=== PATIENT | female | born 1995 | race African-American/Black ===

== ENCOUNTER 2016-11-30 16:29 | Emergency (ER) | payer OTHER ==
[~2016-11-30] VITALS: Ht 162.6 cm; Wt 63.0 kg
[~2016-11-30 16:29] MED LIST: ACETAMINOP160 MG/12 PER TUBE; CLARITIN10 MG PO; COLACE100 MG PO; FLAGYL500 MG PO; HUMALOG100 UNIT/1 SUBQ; KEFLEX500 MG PO; LANTUS100 UNIT/M SUBQ; METHIMAZOLE10 MG PO; NORCO 5-325 TA1 EACH PO; NOVOLIN R100 UNIT/1 IJ; ONDANSETRON HCL4 M2 PO; PENICILLIN VK500 M1 PO; PREDNISONE 20 M20 M1 PO; PRENATAL COMPL1 EACH PO; PROCTOSOL-HC28.35 GM RC; PROPRANOLOL 1010 MG PO; TAPAZOLE10 MG PO; TESSALON PERLE100 MG PO; TRINATE TABLET1 TAB PO; TYLENOL325 MG; ZANTAC 150MG T150 M1 PO
[2016-11-30 16:53] LABS: ABSOLUTE NEUTROPHILS 5.4 thou/uL (1.4-8.2); BASOPHILS 0.9 % (0.0-2.0); EOSINOPHILS 0.8 % (0.0-3.0); HEMATOCRIT 42.2 % (37.0-47.0); LYMPHOCYTES 29.8 % (24.0-44.0); MCHC 35.6 g/dL (28.0-37.0); MONOCYTES 8.5 % (1.0-8.0); PLATELET COUNT 376 thou/uL (150-400); RBC 4.85 mil/uL (4.20-5.00); RDW 12.4 % (10.5-14.5)
[2016-11-30 16:56] LABS: MANUAL DIFF NO
[2016-11-30 17:03] LABS: CALCIUM 10.2 mg/dL (8.5-10.1); CREATININE 0.9 mg/dL (0.6-1.3); POTASSIUM 3.6 mmol/L (3.5-5.1)
[2016-11-30 17:07] LABS: TOTAL BILIRUBIN 0.5 mg/dL (<0.1-1.0); TOTAL PROTEIN 8.7 g/dL (6.4-8.2)
[2016-11-30 17:43] LABS: URINE BLOOD NEGATIVE (Negative); URINE COLOR YELLOW; URINE GLUCOSE-RANDOM* 1+ (Negative); URINE KETONES 2+ (Negative); URINE LEUKOCYTES-REFLEX NEGATIVE (Negative); URINE PROTEIN (DIPSTICK) 2+ (Negative); URINE SPECIFIC GRAVITY >= 1.030 (1.003-1.035); URINE UROBILINOGEN 0.2 E.U./dl (0.2-1.0)
[2016-11-30 17:44] LABS: ICTOTEST (BILI CONFIRMATORY) Negative (Negative); URINE BILIRUBIN NEGATIVE (Negative)
[2016-11-30 17:55] LABS: SQUAMOUS >10 Many /LPF (0-3)
[2016-11-30 17:56] LABS: CASTS None Seen /LPF (None Seen); CRYSTALS None Seen /LPF (None Seen); URINE RBC 0-2 Rare /HPF (0-2); YEAST-REFLEX Present (None Seen)
[2016-11-30 18:32] LABS: ABG SAMPLE TYPE VENOUS; BE(vivo) -3.6 mmol/L (-2 to +3); HCO3 18.9 mmol/L (22.0-26.0); LACTATE 1.48 mmol/L (0.5-2.0); O2(CT) 17.7 mL/dL (15.0-23.0); O2Hb VENOUS 93.9 (65.0-85.0); PCO2 VENOUS 27.2 mmHg (41.0-51.0); PO2 VENOUS 140.7 mmHg (35.0-45.0); tCO2 19.7 mmol/L (24.0-30.0)
[2016-11-30 18:37] LABS: FIO2 21 %
[2016-11-30] MEDS ORDERED: ZOFRAN ODT4 M1 PO (19:01)
[2016-11-30] MEDS ORDERED: LANTUS100 UNIT/M SUBQ (19:03)
[2016-11-30] MEDS ORDERED: HUMALOG100 UNIT/1 SUBQ (19:03)
[2016-11-30] MEDS ORDERED: DIFLUCAN200 MG PO (19:03)
== END 2016-11-30 19:19 | disposition home or self-care (01) ==
LOC: ER 16:29
PROVIDERS: Emergency Medicine; Physician Assistant
DX: B37.9 Candidiasis, unspecified (principal); E11.9 Type 2 diabetes mellitus without complications; E86.0 Dehydration; E05.90 Thyrotoxicosis, unspecified without thyrotoxic crisis or storm

== ENCOUNTER 2017-03-19 17:18 | Emergency (ER) | payer OTHER ==
[~2017-03-19] VITALS: Ht 162.6 cm; Wt 61.2 kg
[~2017-03-19 17:18] MED LIST changes: +DIFLUCAN200 MG PO; +ZOFRAN ODT4 M1 PO
[2017-03-19 17:59] LABS: URINE BILIRUBIN NEGATIVE (Negative); URINE BLOOD NEGATIVE (Negative); URINE COLOR YELLOW; URINE GLUCOSE-RANDOM* 3+ (Negative); URINE KETONES NEGATIVE (Negative); URINE NITRITE NEGATIVE (Negative); URINE PROTEIN (DIPSTICK) NEGATIVE (Negative); URINE SPECIFIC GRAVITY <= 1.005 (1.003-1.035); URINE UROBILINOGEN 0.2 E.U./dl (0.2-1.0)
[2017-03-19] MEDS ORDERED: LANTUS100 UNIT/M SUBQ (20:02)
[2017-03-19] MEDS ORDERED: HUMALOG100 UNIT/1 SUBQ (20:02)
== END 2017-03-19 20:30 | disposition home or self-care (01) ==
LOC: ER 17:18
PROVIDERS: Nurse Practitioner Family
DX: E11.65 Type 2 diabetes mellitus with hyperglycemia (principal); E05.90 Thyrotoxicosis, unspecified without thyrotoxic crisis or storm; Z79.4 Long term (current) use of insulin

== ENCOUNTER 2017-05-11 09:42 | Emergency (ER) | payer OTHER ==
[~2017-05-11] VITALS: Ht 162.6 cm; Wt 61.7 kg
[2017-05-11] MEDS ORDERED: MOBIC7.5 MG PO (11:03)
[2017-05-11] MEDS ORDERED: NORCO 5-325 TA1 EACH PO (11:13)
[2017-05-11] MEDS ORDERED: HUMALOG100 UNIT/1 SUBQ (11:21)
[2017-05-11] MEDS ORDERED: LANTUS100 UNIT/M SUBQ (11:21)
== END 2017-05-11 11:35 | disposition home or self-care (01) ==
LOC: ER 09:42
DX: S92.422A Displaced fracture of distal phalanx of left great toe, initial encounter for closed fracture (principal); E11.9 Type 2 diabetes mellitus without complications; E03.9 Hypothyroidism, unspecified; Z79.4 Long term (current) use of insulin; X58.XXXA Exposure to other specified factors, initial encounter; Y93.89 Activity, other specified; Y92.89 Other specified places as the place of occurrence of the external cause; Y99.8 Other external cause status

== ENCOUNTER 2017-05-24 06:30 | Emergency (ER) | payer OTHER ==
[~2017-05-24] VITALS: Ht 162.6 cm; Wt 59.9 kg
[~2017-05-24 06:30] MED LIST changes: +MOBIC7.5 MG PO
[2017-05-24 08:29] LABS: URINE BILIRUBIN NEGATIVE (Negative); URINE BLOOD NEGATIVE (Negative); URINE COLOR YELLOW; URINE GLUCOSE-RANDOM* 1+ (Negative); URINE KETONES 3+ (Negative); URINE NITRITE NEGATIVE (Negative); URINE PROTEIN (DIPSTICK) TRACE (Negative); URINE SPECIFIC GRAVITY >= 1.030 (1.003-1.035); URINE UROBILINOGEN 0.2 E.U./dl (0.2-1.0)
[2017-05-24] MEDS ORDERED: PROPRANOLOL 1010 MG PO (09:31)
[2017-05-24] MEDS ORDERED: ZOFRAN ODT4 MG PO (09:31)
== END 2017-05-24 10:33 | disposition left against medical advice (07) ==
LOC: ER 06:30
PROVIDERS: Emergency Medicine
DX: E11.9 Type 2 diabetes mellitus without complications (principal); R11.2 Nausea with vomiting, unspecified; R00.0 Tachycardia, unspecified; E05.90 Thyrotoxicosis, unspecified without thyrotoxic crisis or storm; Z79.4 Long term (current) use of insulin

== ENCOUNTER 2017-06-02 08:49 | Emergency (ER) | payer OTHER ==
[~2017-06-02] VITALS: Ht 162.6 cm; Wt 61.7 kg
--- NOTE | ~2017-06-02 | EKG ---
[address] [address] ELECTROCARDIOGRAM REPORT Name: RACHEAL VAZQUEZ Room #: DEP [facility]#: [id number] Admission: 06/02/17 Attend Phys: Discharge: 06/02/17 Date of : [birth year] Report #: [id number] THIS REPORT FOR: //name// [facility] ED Test Date: 2017-06-02 Test Time: 10:02:42 Pat Name: RACHEAL VAZQUEZ Department: Room: Gender: F Digital Hardware Design Engineer: [id number] : 1995 Requested By: Devin Melendez Order Number: [id number] MD: Carlo Moura Measurements Intervals [place] Rate: 101 P: 32 [place]: 123 QRS: 37 QRSD: 65 T: 33 QT: 297 QTc: 385 Interpretive Statements Sinus tachycardia Compared to ECG 12/29/2015 10:29:19 No significant changes Electronically Signed On 06-02-2017 12:50:52 CDT by Carlo Moura [email or web address] <ELECTRONICALLY SIGNED> By: Carlo Moura MD 06/02/17 1250 1002 1002 Carlo Moura MD /ZAK
[~2017-06-02 08:49] MED LIST changes: +ZOFRAN ODT4 MG PO
[2017-06-02] MEDS ORDERED: IBUPROFEN 600600 M1 PO (10:30)
[2017-06-02] MEDS ORDERED: ULTRAM 50MG TAB50 MG PO (10:30)
== END 2017-06-02 10:42 | disposition home or self-care (01) ==
LOC: ER 08:49
DX: S92.421A Displaced fracture of distal phalanx of right great toe, initial encounter for closed fracture (principal); E11.9 Type 2 diabetes mellitus without complications; E05.90 Thyrotoxicosis, unspecified without thyrotoxic crisis or storm; Z79.4 Long term (current) use of insulin; X58.XXXA Exposure to other specified factors, initial encounter; Y93.89 Activity, other specified; Y92.89 Other specified places as the place of occurrence of the external cause; Y99.8 Other external cause status

== ENCOUNTER 2018-01-21 11:43 | Emergency (ER) | payer OTHER ==
[~2018-01-21] VITALS: Ht 162.6 cm; Wt 56.7 kg
[~2018-01-21 11:43] MED LIST changes: +IBUPROFEN 600600 M1 PO; +ULTRAM 50MG TAB50 MG PO
[2018-01-21] MEDS ORDERED: MOBIC15 MG PO (12:08)
[2018-01-21] MEDS ORDERED: PENICILLIN VK500 M1 PO (12:08)
== END 2018-01-21 12:15 | disposition home or self-care (01) ==
LOC: ER 11:43
DX: K04.7 Periapical abscess without sinus (principal); E11.9 Type 2 diabetes mellitus without complications; E05.90 Thyrotoxicosis, unspecified without thyrotoxic crisis or storm